=== PATIENT | female | born 1960 | race Caucasian/White ===

== ENCOUNTER 2016-07-14 14:45 | Inpatient (IN) | payer OTHER ==
[~2016-07-14] VITALS: Ht 162.6 cm; Wt 85.1 kg
[2016-07-14 14:47] VITALS: BP 151/93
[2016-07-14 15:59] LABS: ABSOLUTE NEUTROPHILS 5.5 thou/uL (1.4-8.2); BASOPHILS 0.9 % (0.0-2.0); EOSINOPHILS 0.9 % (0.0-3.0); HEMOGLOBIN 13.5 gm/dL (12.0-15.0); LYMPHOCYTES 24.3 % (24.0-44.0); MANUAL DIFF NO; MCH 29.5 pg (26.0-34.0); MCHC 34.6 g/dL (28.0-37.0); MCV 85.2 fL (80.0-100.0); MONOCYTES 5.6 % (1.0-8.0); PLATELET COUNT 181 thou/uL (150-400); POLYS 68.3 % (36.0-66.0); RBC 4.58 mil/uL (4.20-5.00); RDW 13.7 % (10.5-14.5); WBC 8.1 thou/uL (4.0-11.0)
[2016-07-14 16:08] LABS: CALCIUM 9.1 mg/dL (8.5-10.1); CREATININE 0.7 mg/dL (0.6-1.0); POTASSIUM 3.7 mmol/L (3.5-5.1)
[2016-07-14 16:12] LABS: ALBUMIN 3.3 g/dL (3.4-5.0); MAGNESIUM 1.8 mg/dL (1.8-2.4); TOTAL BILIRUBIN 0.2 mg/dL (<0.1-1.0); TOTAL PROTEIN 6.9 g/dL (6.4-8.2)
[2016-07-14 18:53] VITALS: BP 133/72
[2016-07-14] MEDS ORDERED: COZAAR 25 MG TA25 M1 PO (18:57)
[2016-07-14] MEDS ORDERED: PRAVACHOL20 MG PO (18:58)
[2016-07-14] MEDS ORDERED: PROZAC10 MG PO (18:58)
[2016-07-14] MEDS ORDERED: PRILOSEC OTC20 MG PO (19:00)
[2016-07-14] MEDS ORDERED: FLONASE 0.05%50 MCG NASAL (19:00)
[2016-07-14] MEDS ORDERED: MUCINEX1200 MG PO (19:01)
[2016-07-14] MEDS ORDERED: LANTUS100 UNIT/M SUBQ (19:26)
[2016-07-14 19:47] VITALS: BP 124/46
[2016-07-15 03:43] VITALS: BP 132/59
[2016-07-15 08:45] VITALS: BP 142/68
[2016-07-15] MEDS ORDERED: CYCLOBENZAPRINE5 MG PO (09:48)
[2016-07-15] MEDS ORDERED: PREDNISONE 20 M20 MG PO (09:49)
[2016-07-15] MEDS ORDERED: GABAPENTIN 100100 MG PO (09:51)
[2016-07-15 14:55] VITALS: BP 142/68
[2016-07-15 15:15] VITALS: BP 142/68
[2016-07-15 16:12] VITALS: BP 142/68
== END 2016-07-15 17:23 | disposition home or self-care (01) | DRG 552 ==
LOC: ER 14:45 → EROBS 16:25 → 4N 16:25
PROVIDERS: Emergency Medicine
DX: M50.10 Cervical disc disorder with radiculopathy, unspecified cervical region (principal); E11.9 Type 2 diabetes mellitus without complications; E78.5 Hyperlipidemia, unspecified; G43.909 Migraine, unspecified, not intractable, without status migrainosus; F17.210 Nicotine dependence, cigarettes, uncomplicated; M62.838 Other muscle spasm; E66.9 Obesity, unspecified; K21.9 Gastro-esophageal reflux disease without esophagitis; I10 Essential (primary) hypertension; Z90.710 Acquired absence of both cervix and uterus; Z80.9 Family history of malignant neoplasm, unspecified; Z90.49 Acquired absence of other specified parts of digestive tract; Z88.6 Allergy status to analgesic agent; Z88.0 Allergy status to penicillin; Z68.32 Body mass index [BMI] 32.0-32.9, adult; Z79.899 Other long term (current) drug therapy
CPT/HCPCS: 10091